=== PATIENT | male | born 1970 | race Caucasian/White ===

== ENCOUNTER → 2016-09-16 | Outpatient (CLI) | payer OTHER ==
[2016-09-16 13:41] LABS: HEMOGLOBIN A1C 5.61 % (4.2-6.0)
== END ==
LOC: LAB 12:45
PROVIDERS: ATTEND Internal Medicine
DX: R73.9 Hyperglycemia, unspecified (principal); R94.6 Abnormal results of thyroid function studies; F17.200 Nicotine dependence, unspecified, uncomplicated
CPT/HCPCS: 36415; 83036; 84443

== ENCOUNTER → 2016-09-17 | Outpatient (CLI) | payer OTHER | LOC: MMPC 11:11 | PROVIDERS: ATTEND Internal Medicine | DX: F20.9 Schizophrenia, unspecified (principal); R73.09 Other abnormal glucose; R94.6 Abnormal results of thyroid function studies | CPT/HCPCS: 99214; G0463 ==